=== PATIENT | male | born 1990 | race American Indian/Alaskan Native ===

== ENCOUNTER 2017-04-15 11:44 | Emergency (ER) | payer MEDICAID ==
[2017-04-15 11:51] VITALS: BP 147/81; PULSE 72; RESP 20; TEMP 98.2; O2SAT 98
[2017-04-15] MEDS ORDERED: Hydrocodone/Acetaminophen 5 mg /300 mg Tab PO STA (12:20)
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
[2017-04-15] MEDS ORDERED: Hydrocodone/Acetaminophen 5 mg /300 mg Tab PO ONE (12:28)
== END 2017-04-15 13:00 | disposition home or self-care (01) ==
LOC: C.ER 11:44
DX: S62.309D Unspecified fracture of unspecified metacarpal bone, subsequent encounter for fracture with routine healing (principal); Y04.0XXD Assault by unarmed brawl or fight, subsequent encounter